=== PATIENT | female | born 1970 | race Caucasian/White ===

== ENCOUNTER 2017-04-04 02:46 | Emergency (ER) | payer BC, OTHER ==
[~2017-04-04] VITALS: Ht 157.5 cm; Wt 89.3 kg
[~2017-04-04 02:46] MED LIST: CYCL10TA6 PO; CZR25 PO; MULT-506 PO; ROPI1TAB29 PO
[2017-04-04 02:55] VITALS: TEMP 36.6; Ht 157.5 cm; Wt 89.3 kg
--- NOTE | 2017-04-04 03:27 | EMERGENCY ROOM VISIT NOTE ---
History Report prepared by Edmundo: Charli Gibson Under the Supervision of: Dr. Iona Diaz D.O. First contact with patient: 03:03 Chief Complaint: HYPERGLYCEMIA Stated Complaint: SUGER LEVEL 367 Nursing Triage Summary: pt had b/l cortisone injections in her knees at 10 am yesterday. tonight her BSG was elevated and she took an extra Metformin prior to going to bed. woke at 0200 and drank water and rechecked her BSG. History of Present Illness The patient is a 46 year old female who presents to the Emergency Room with concerns over her elevated blood sugar levels that she first noticed this morning at 0000, 3 hours prior to arrival. The patient states that she noticed that her blood sugar level was at 306 this morning at 0000. She took an extra dosage of her Metformin after noticing this level, this was her third 500 mg pill of the day. She checked her sugar again at 0145, 1 hour and 15 minutes ago and her sugar was 367. The patient mentioned that she received bilateral cortisone injections in her knees at 1015 yesterday morning. She just received her diabetes diagnosis a few months ago. Her blood sugar was 240 upon arrival to the department. 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 A total of 10 systems reviewed and were otherwise negative. Past Medical & Surgical Medical Problems: (1) Carpal tunnel syndrome of right wrist (2) Chest pain (3) Hypertension Nos (4) Kidney stone (5) Leg pain, right (6) Lower extremity cellulitis (7) Lower extremity cellulitis (8) Peripheral neuropathy (9) Pneumonia (10) Right elbow pain (11) Sciatica of right side (12) Sciatica of right side Surgical Problems: (1) H/O arthroscopic knee surgery Family History Diabetes mellitus FH: HTN (hypertension) Kidney stones Seizures Social History Smoking Status: Current Every Day Smoker Drug Use: none Marital Status: Housing Status: lives with family Occupation Status: employed Current/Historical Medications Scheduled Cholecalciferol (Vitamin D3), 1,000 UNIT PO DAILY Cyanocobalamin (Vitamin B-12), 1,000 MCG PO DAILY Losartan Potassium (Losartan Potassium), 25 MG PO DAILY Metformin Hcl (Glucophage), 500 MG PO BID Multivitamin (Multivitamin), 1 TAB PO DAILY Scheduled PRN Cyclobenzaprine Hcl (Flexeril), 10 MG PO TID PRN for Muscle Spasms Ropinirole HCl (Ropinirole HCl), 1 MG PO BID PRN for RLS Allergies Coded Allergies: Tizanidine (Verified Adverse Reaction, Intermediate, NUERO CHANGES, ) Promethazine (Verified Adverse Reaction, Mild, JITTERY, 04/04/17) Physical Exam Vital Signs Date Time Temp Pulse Resp B/P (MAP) Pulse Ox O2 Delivery O2 Flow Rate FiO2 04/04/17 04:50 96 16 148/90 Room Air 04/04/17 03:43 99 16 148/97 92 Room Air 04/04/17 02:55 36.6 105 20 159/113 95 Room Air Physical Exam HEENT: Head - normocephalic and atraumatic Pupils are equal, round, and reactive to light. Extraocular eye muscles are intact, and sclera are anicteric. Nose - moist nasal mucosa without discharge. Mouth - moist buccal mucosa. Oropharynx is nonerythematous and there is no tonsillar exudate or edema noted. Neck: Supple; no JVD, nuchal rigidity, cervical lymphadenopathy. Heart: Regular rate and rhythm. There is a normal S1 and S2 with no murmurs, clicks, or gallops appreciated. Lungs: Clear to auscultation bilaterally with no wheezes, rales, or rhonchi. Abdomen: Soft, completely nontender, nondistended, with good bowel sounds. There are no palpable pulsatile masses or hepatosplenomegaly. There is no guarding, rigidity, or rebound noted. Extremities: There is a superficial laceration to the right lateral knee from a dog scratch. No evidence of cyanosis, clubbing, or edema. There are easily palpable peripheral pulses. Skin: warm and dry with good turgor and no rashes. Medical Decision & Procedures Laboratory Results 04/04/17 03:35 Red Blood Count 4.69, Mean Corpuscular Volume 94.2, Mean Corpuscular Hemoglobin 32.8, Mean Corpuscular Hemoglobin Concent 34.8, Mean Platelet Volume 10.1, Neutrophils (%) (Auto) 87.2, Lymphocytes (%) (Auto) 7.8, Monocytes (%) (Auto) 4.5, Eosinophils (%) (Auto) 0.0, Basophils (%) (Auto) 0.1, Neutrophils # (Auto) 12.73, Lymphocytes # (Auto) 1.14, Monocytes # (Auto) 0.66, Eosinophils # (Auto) 0.00, Basophils # (Auto) 0.01 04/04/17 03:35 Test 04/04/17 03:35 04/04/17 03:40 04/04/17 04:07 White Blood Count 14.60 K/uL (4.8-10.8) Red Blood Count 4.69 M/uL (4.2-5.4) Hemoglobin 15.4 g/dL (12.0-16.0) Hematocrit 44.2 % (37-47) Mean Corpuscular Volume 94.2 fL (80-100) Mean Corpuscular Hemoglobin 32.8 pg (25-34) Mean Corpuscular Hemoglobin Concent 34.8 g/dl (32-36) Platelet Count 353 K/uL (130-400) Mean Platelet Volume 10.1 fL (7.4-10.4) Neutrophils (%) (Auto) 87.2 % Lymphocytes (%) (Auto) 7.8 % Monocytes (%) (Auto) 4.5 % Eosinophils (%) (Auto) 0.0 % Basophils (%) (Auto) 0.1 % Neutrophils # (Auto) 12.73 K/uL (1.4-6.5) Lymphocytes # (Auto) 1.14 K/uL (1.2-3.4) Monocytes # (Auto) 0.66 K/uL (0.11-0.59) Eosinophils # (Auto) 0.00 K/uL (0-0.5) Basophils # (Auto) 0.01 K/uL (0-0.2) RDW Standard Deviation 45.2 fL (36.4-46.3) RDW Coefficient of Variation 13.1 % (11.5-14.5) Immature Granulocyte % (Auto) 0.4 % Immature Granulocyte # (Auto) 0.06 K/uL (0.00-0.02) Anion Gap 10.0 mmol/L (3-11) Est Creatinine Clear Calc Drug Dose 86.1 ml/min Estimated GFR () 96.6 Estimated GFR (Non- 83.4 BUN/Creatinine Ratio 22.0 (10-20) Calcium Level 9.5 mg/dl (8.5-10.1) Urine Color YELLOW Urine Appearance CLEAR (CLEAR) Urine pH 5.5 (4.5-7.5) Urine Specific [place] 1.036 (1.000-1.030) Urine Protein 3+ (NEG) Urine Glucose (UA) 3+ (NEG) Urine Ketones TRACE (NEG) Urine Occult Blood 2+ (NEG) Urine Nitrite NEG (NEG) Urine Bilirubin NEG (NEG) Urine Urobilinogen NEG (NEG) Urine Leukocyte Esterase NEG (NEG) Urine WBC (Auto) 0 /hpf (0-5) Urine RBC (Auto) 5-10 /hpf (0-4) Urine Hyaline Casts (Auto) 0 /lpf (0-5) Urine Epithelial Cells (Auto) 5-10 /lpf (0-5) Urine Bacteria (Auto) NEG (NEG) Bedside Glucose 222 mg/dl (70-90) Laboratory results per my review. ED Course 0316: Past medical records reviewed. The patient was evaluated in room A3. A complete history and physical exam was performed. An IV lock was initiated and labs were drawn as above. 0413: Nursing staff has informed be that the patient's blood sugar is 222 at this time. 0429: Upon reevaluation, the patient is feeling well. I discussed findings and results with her. She verbalized agreement of the treatment plan. The patient was discharged home. Medical Decision The patient is a 46 year old female who presents to the Emergency Department for high blood sugar levels. Differential diagnosis includes; Hyperglycemia secondary to steroid injections, uncontrolled diabetes, DKA. Laboratory Studies were reviewed and show; White count of 14.6, Stable hemoglobin and hematocrit, glucose of 240, BSG of 222, normal renal function. Urinalysis reveals trace ketones, 3+ glucose, 3+ proteins, and 2+ blood. The patient has a history of type 2 diabetes and takes metformin. She noticed a high blood sugar reading tonight and took an extra dose of her metformin. I believe that her hyperglycemia is explained by the recent hydrocortisone injections she received yesterday morning. I've asked patient to watch her blood sugar closely over the next couple of days. If sugar remains elevated, she will require follow-up with her PCP. In the meantime, I spoke with her about her nutrition. I suggested that she avoid foods like cereal, rice, potatoes and bread. Medication Reconcilliation Current Medication List: was personally reviewed by me Blood Pressure Screening Patient's blood pressure: Elevated blood pressure Blood pressure disposition: Elevated BP felt to be situational Impression Primary Impression: Diabetes mellitus with hyperglycemia Scribe Attestation The scribe's documentation has been prepared under my direction and personally reviewed by me in its entirety. I confirm that the note above accurately reflects all work, treatment, procedures, and medical decision making performed by me. Departure Information Dispostion Home / Self-Care Referrals Ruby Boland D.O. (PCP) Forms HOME CARE DOCUMENTATION FORM, IMPORTANT VISIT INFORMATION, WORK / SCHOOL INSTRUCTIONS Patient Instructions My [facility] [place] [employer] Additional Instructions Watch your blood sugar closely - especially over next couple of days. Follow up with pcp if blood sugar remains high. You should avoid breads, hoagies, rice and potatoes to improve the blood sugars
[2017-04-04 03:43] VITALS: O2SAT 92
[2017-04-04 03:46] LABS: BASO % 0.1 %; BASO ABS # 0.01 K/uL (0-0.2); COMPLETE YES; HEMATOCRIT 44.2 % (37-47); IG% 0.4 %; LYMPH % 7.8 %; LYMPH ABS # 1.14 K/uL (1.2-3.4); MEAN CELL VOLUME 94.2 fL (80-100); MEAN CORPUSCULAR HEMOGLOBIN 32.8 pg (25-34); MEAN CORPUSCULAR HGB CONC 34.8 g/dl (32-36); MEAN PLATELET VOLUME 10.1 fL (7.4-10.4); MONO % 4.5 %; NEUT % 87.2 %; PLATELET COUNT 353 K/uL (130-400); RED BLOOD COUNT 4.69 M/uL (4.2-5.4)
[2017-04-04 03:50] LABS: URINE APPEARANCE CLEAR (CLEAR); URINE BILIRUBIN NEG (NEG); URINE COLOR YELLOW; URINE NITRITE NEG (NEG); URINE PH 5.5 (4.5-7.5); URINE SPECIFIC GRAVITY 1.036 (1.000-1.030); UROBILINOGEN NEG (NEG)
[2017-04-04 04:00] LABS: MANUAL MICROSCOPIC REQUIRED? NO; REVIEW REQ? NO
[2017-04-04 04:15] LABS: BLOOD UREA NITROGEN 18 mg/dl (7-18); CALCIUM 9.5 mg/dl (8.5-10.1); CARBON DIOXIDE 22 mmol/L (21-32); CHLORIDE 106 mmol/L (98-107); CREATININE 0.83 mg/dl (0.60-1.20); GLUCOSE 240 mg/dl (70-99); SODIUM 138 mmol/L (136-145)
[2017-04-04] MEDS ORDERED: CHOL1000 PO (04:29)
[2017-04-04] MEDS ORDERED: CYAN10005 PO (04:29)
[2017-04-04] MEDS ORDERED: GLC/500 PO (04:29)
[2017-04-04 04:50] VITALS: BP 148/90; PULSE 96
== END 2017-04-04 04:50 | disposition home or self-care (01) ==
LOC: C.EDB 02:47 → C.EDA 04:50
DX: E11.65 Type 2 diabetes mellitus with hyperglycemia (principal); I10 Essential (primary) hypertension; Z87.442 Personal history of urinary calculi; G62.9 Polyneuropathy, unspecified; Z87.01 Personal history of pneumonia (recurrent); Z83.3 Family history of diabetes mellitus; Z82.49 Family history of ischemic heart disease and other diseases of the circulatory system; Z84.1 Family history of disorders of kidney and ureter; Z82.0 Family history of epilepsy and other diseases of the nervous system; F17.210 Nicotine dependence, cigarettes, uncomplicated; Z79.899 Other long term (current) drug therapy